=== PATIENT | male | born 2000 | race Caucasian/White ===

== ENCOUNTER 2023-05-14 09:14 | Outpatient (CLI) | payer OTHER ==
--- NOTE | 2023-05-14 09:41 | Sleep Patient Instructions ---
Sleep Center Visit Summary - Patient Visit Information Reason for Visit: Initial consult for evaluation of sleep disordered breathing and other sleep issues. - Patient Instructions Instructions Attached: Sleep Study Home Monitor Additional Instructions: You will be completing a sleep study, either an in-lab polysomnography (PSG) or home sleep study (HST). You will follow-up in the sleep care office after the sleep study is completed to hear the results and talk about therapy, if needed. You will be called by our office staff to schedule this appointment, but you may contact us with any questions. - Clinic Information Contact: [facility] [address] [place] [address] [email or web address] T: [phone]
--- NOTE | 2023-05-14 09:44 | SLEEP CARE CONSULTATION ---
Information from patient questionnaire entered by Kristal Trevizo. I have reviewed and concur with the information entered by Kristal Trevizo. This document represents the service I personally performed and the decisions made by me, Lashay Clarke ARNP. History of Present Illness Service Date and Time: 05/14/2023 09 Reason for Visit: New patient Chief Complaint: reports: Insomnia, Unrefreshed sleep, Snoring, Excessive daytime sleepiness, Fatigue Date of Onset: 1YR Usual bedtime: 0400 Time it takes to fall asleep: 2-3HRS Snores at night: Yes Observed to quit breathing while asleep: No Sleeps alone due to snoring: No Number of times waking at night: 1-2 Reasons for waking at night: reports: Snoring, Bathroom. denies: Choking, Gasping for air Toss, Turn, or Twitch while sleeping: Yes Recalls having dreams: No Usually gets out of bed at: 1200 Feels refreshed in the morning: No Morning headache: Yes (daily; last all day unless he takes meds) Sleepy or fatigued during the day: Yes (few unintentional naps, not often) Ever fallen asleep while driving: No Takes day naps: No Dreams during day naps: Yes Prior sleep studies: No Additional HPI information: I had the pleasure of seeing YESICA PURCELL today regarding the possibility of him having a sleep disorder. His current complaints are excessive daytime sleepiness, fatigue, insomnia, snoring and unrefreshed sleep. He saw his PCM because he is waking up with headaches and migraines every day. He told them that he is tired/fatigued during the day. He was on days for work last week but he just switched to nights where he goes to bed at 0400 and sleeps till about 12 noon. He says it normally takes him 2-3 hours to fall asleep in general for any sleep schedule. Once he gets to sleep he is able to stay asleep with few awakenings. His ex-girlfriend told him he did snores but she never noticed him stop breathing in his sleep. - Parasomnia Symptoms Ever been unable to move upon waking from sleep: Yes (only 1-2 times, last time was 2 months ago and before that 1-2 yrs ago) Walks in sleep: No Talks in sleep: No Ever acted out dreams in sleep: No Ever felt weak in the knees when startled or emotional: No Bothered by creepy, crawly, restless sensations in legs: No Problems with memory or concentration: Yes (memory mostly) Subjective Initial [place] Sleepiness Scale score: 15 (05/13/23) Past Medical History Past Medical History: reports: Other (no significant medical history) Social History The patient's occupation is a AM. Patient is Single and lives in . Have you smoked in the past 12 months: No Alcohol use: No Caffeine use: Yes Caffeine amount and frequency: 1 CUP COFFEE ONCE A DAY Family History Family history of sleep disordered breathing: Yes Family Hx Sleep Apnea: Father: Snoring, Grandparent: Snoring Allergies and Home Medications Known drug allergies: No Drug allergies reviewed: Yes Home medication list reviewed: Yes (as listed) Allergy and home medication list: Home Medications Medication Instructions Recorded Confirmed Last Taken Type Excedrin See Rx Instructions .ROUTE .COMPLEX 05/14/23 Unknown History Review of Systems Cardiovascular: denies: high blood pressure Gastrointestinal: denies: heartburn Urinary: reports: frequency Neurological: reports: headaches Psychiatric: denies: Attention Deficit Hyperactivity, anxiety, depression Ear/Nose/Throat: reports: wisdom teeth removed. denies: tonsillectomy Endocrine: reports: sluggishness, excessive thirst, increased urination Physical Exam Vital signs obtained and entered by: KRISTAL Lawrence MA Blood Pressure: 146/96 (LEFT ARM) Cuff size: regular Heart Rate: 65 O2 Saturation: 99 Height: 6 ft 0.5 in Weight: 174 lb 12.8 oz Body Mass Index: 23.3 BMI Classification: Normal Neck circumference: 14.25 Mouth and throat: narrow oropharynx Soft palate: long Hard palate: normal Uvula: normal Uvula visualization: 0% Mallampati Class IV Tongue: normal in size Tonsils: small Neck: normal w/o lymphadenopathy or thyromegaly Heart: regular rate and rhythm Lungs: clear bilaterally Impression and Plan 1. Suspected Obstructive Sleep Apnea-Hypopnea Syndrome, as suggested by a history of loud and irregular snoring, morning headache, unrefreshed sleep, cognitive impairment, and excessive daytime sleepiness. Narrow oropharynx and obesity are common predisposing factors for obstructive sleep apnea-hypopnea syndrome. I recommend proceeding to polysomnography to confirm the diagnosis and to assess severity. If the patient has significant sleep disordered breathing, a manual CPAP titration study will also be performed to find the optimal treatment pressure. I informed the patient of what the sleep studies involve and after some discussion, obtained agreement to proceed. The pathophysiology of obstructive sleep apnea-hypopnea syndrome was discussed with the patient and health risks of cardiovascular and cerebrovascular disease if not treated. Risks of drowsy driving discussed in detail and patient advised to avoid long distance driving and to assembler for puller over hand at the first sign of drowsiness. Patient agreed to plan. * Schedule polysomnography +- manual CPAP titration study and return in 1-2 weeks after the study to discuss result and initiate therapy. * Avoid long distance driving or driving when feeling sleepy. * Avoid alcohol, sedative and muscle relaxant around bedtime. * Review instructions provided by trained office staff on how to prepare for the sleep study. * Return for follow-up after sleep study completed. Follow up with Sleep Care in: other (for sleep study results) Plan: PSG/HST Visit Type: In Office Time Spent with Patient (minutes): 30 Provider Statement: I spent 100% of the Face to Face Visit with the patient with greater than 50% spent counseling the patient and coordination of care.
[2023-05-14 09:48] VITALS: BP 146/96; O2SAT 99
== END 2023-05-14 09:15 | disposition home or self-care (01) ==
LOC: SC 09:14
PROVIDERS: ATTEND Nurse Practitioner Family
DX: R06.83 Snoring (principal); G47.8 Other sleep disorders; R51.9 Headache, unspecified; G47.10 Hypersomnia, unspecified; R41.89 Other symptoms and signs involving cognitive functions and awareness; R53.83 Other fatigue
CPT/HCPCS: 99203; 99212